=== PATIENT | female | born 1970 | race Caucasian/White ===

== ENCOUNTER 2017-02-26 13:46 | Inpatient (IN) | payer BC ==
[2017-02-26] MEDS ORDERED: NORMAL SALINE 1000 ML 2,000 ML IV PRN (13:58)
--- NOTE | 2017-02-26 14:00 | ER Document Report ---
ED Medical Screen (RME) - General Chief Complaint: Shortness Of Breath Stated Complaint: SHORTNESS OF BREATH Time Seen by Provider: 02/26/17 13:53 Mode of Arrival: Ambulatory Information source: Patient TRAVEL OUTSIDE OF THE [place] IN LAST 30 DAYS: No - HPI Patient complains to provider of: Of breath, low blood pressure Onset: Last week Onset/Duration: Persistent, Worse Notes: 02/26/17 13:59 Patient is a 46-year-old female with a history of hypertension, who presents to the emergency room from [facility] for complaints of shortness of breath this been worsening over the past week, she was seen at the urgent care this morning and had outpatient labs, chest x-ray and EKG done, which are consistent with acute renal failure which patient reports no history of previously, she was noted to have a blood pressure 78/52 in the office as well, was recommended to come by ambulance but patient refused and came by private vehicle, she is hypotensive in our emergency department triage area as well, however lungs are clear to auscultation, she is not in respiratory distress, she does appear to have a dry mouth as she is speaking to me and frequently trying to lick her lips - Related Data Allergies/Adverse Reactions: acetaminophen [From Percocet] Allergy (Verified 02/26/17 13:48) oxycodone HCl [From Percocet] Allergy (Verified 02/26/17 13:48) Penicillins Allergy (Verified 02/26/17 13:48) Past Medical History - Past Medical History Cardiac Medical History: Reports: Hx Hypercholesterolemia Neurological Medical History: Reports: Hx Migraine Renal/ Medical History: Denies: Hx Peritoneal Dialysis Musculoskeltal Medical History: Reports Hx Arthritis Psychiatric Medical History: Reports: Hx Depression Past Surgical History: Reports: Hx Tonsillectomy - Immunizations Hx Diphtheria, Pertussis, Tetanus Vaccination: Yes Physical Exam - Vital signs Vitals: Temp Pulse Resp BP Pulse Ox 97.7 F 93 18 85/64 L 99 02/26/17 13:49 02/26/17 13:49 02/26/17 13:49 02/26/17 13:49 02/26/17 13:49 Course - Vital Signs Vital signs: Temp Pulse Resp BP Pulse Ox 97.7 F 93 18 85/64 L 99 02/26/17 13:49 02/26/17 13:49 02/26/17 13:49 02/26/17 13:49 02/26/17 13:49
--- NOTE | 2017-02-26 14:22 | ER Document Report ---
ED Respiratory Problem - General Chief Complaint: Shortness Of Breath Stated Complaint: SHORTNESS OF BREATH Time Seen by Provider: 02/26/17 13:53 Mode of Arrival: Ambulatory Notes: The patient is a 46-year-old female, past medical history hypertension, fibromyalgia, chronic migraines, presents from urgent care center after she was having increased shortness of breath over the past day and was noted to have symptomatic hypotension with blood pressures in the 70s-80s/50s. She had a near syncopal episode yesterday. Patient was using her albuterol inhaler every few minutes over the past day without much relief of her dry cough. Her creatinine was also noted to be 3.75 and she said that she has no history of kidney disease. Pt said that she was drinking fluids, but she is urinating less often. Patient denies chest pain, leg swelling, nausea, vomiting, diarrhea, hematuria, dysuria, headache or rash. TRAVEL OUTSIDE OF THE [place] IN LAST 30 DAYS: No - Related Data Allergies/Adverse Reactions: acetaminophen [From Percocet] Allergy (Verified 02/26/17 13:48) oxycodone HCl [From Percocet] Allergy (Verified 02/26/17 13:48) Penicillins Allergy (Verified 02/26/17 13:48) Home Medications: Current Home Medications Candesartan Cilexetil [Atacand] 32 mg PO DAILY 02/26/17 [History] Citalopram Hydrobromide [Celexa 40 mg Tablet] 50 mg PO DAILY 02/26/17 [History] Cyclobenzaprine HCl [Flexeril 10 mg Tablet] 10 mg PO DAILYP PRN 02/26/17 [ History] Dextroamphetamine/Amphetamine [Adderall Xr 30 mg Capsule] 30 mg PO BID 02/26/17 [History] Levorphanol Tartrate [Levorphanol Tartrate] 2 mg PO Q12 02/26/17 [History] Naloxegol Oxalate [Movantik 25 mg Tablet] 25 mg PO DAILY 02/26/17 [History] Naproxen 500 mg PO BIDP PRN 02/26/17 [History] Norethindrone [Hawa-Be] 0.35 mg PO DAILY 02/26/17 [History] Omeprazole 20 mg PO BID 02/26/17 [History] Spironolactone [Aldactone] 100 mg PO DAILY 02/26/17 [History] Sumatriptan [Imitrex 20 Mg Nasal [place] Ud] 20 mg NASL ASDIR PRN 02/26/17 [ History] Past Medical History - General Information source: Patient - Social History Smoking Status: Never Smoker Frequency of alcohol use: None Drug Abuse: None Family History: Reviewed & Not Pertinent - Past Medical History Cardiac Medical History: Reports: Hx Hypercholesterolemia, Hx Hypertension Neurological Medical History: Reports: Hx Migraine Renal/ Medical History: Denies: Hx Peritoneal Dialysis Musculoskeltal Medical History: Reports Hx Arthritis Psychiatric Medical History: Reports: Hx Depression Past Surgical History: Reports: Hx Tonsillectomy - Immunizations Hx Diphtheria, Pertussis, Tetanus Vaccination: Yes Review of Systems - Review of Systems Notes: REVIEW OF SYSTEMS: CONSTITUTIONAL: -fevers, -chills EENT: -eye pain, -difficulty swallowing, -nasal congestion CARDIOVASCULAR:-chest pain, -syncope. RESPIRATORY: -cough, -SOB GASTROINTESTINAL: -abdominal pain, - nausea, -vomiting, -diarrhea GENITOURINARY: -dysuria, -hematuria MUSCULOSKELETAL: -back pain, -neck pain SKIN: -rash or skin lesions. HEMATOLOGIC: -easy bruising or bleeding. LYMPHATIC: -swollen, enlarged glands. NEUROLOGICAL: +lightheaded, -altered mental status or loss of consciousness, - headache, -neurologic symptoms PSYCHIATRIC: -anxiety, -depression. ALL OTHER SYSTEMS REVIEWED AND NEGATIVE. Physical Exam - Vital signs Vitals: Temp Pulse Resp BP Pulse Ox 97.7 F 93 18 85/64 L 99 02/26/17 13:49 02/26/17 13:49 02/26/17 13:49 02/26/17 13:49 02/26/17 13:49 - Notes Notes: PHYSICAL EXAMINATION: GENERAL: Well-appearing, well-nourished and in no acute distress. HEAD: Atraumatic, normocephalic. EYES: Pupils equal round and reactive to light, extraocular movements intact, sclera anicteric, conjunctiva are normal. ENT: nares patent, oropharynx clear without exudates. Moist mucous membranes. NECK: Normal range of motion, supple without lymphadenopathy LUNGS: Breath sounds clear to auscultation bilaterally and equal. No wheezes rales or rhonchi. HEART: Regular rate and rhythm without murmurs ABDOMEN: Soft, nontender, normoactive bowel sounds. No guarding, no rebound. No masses appreciated. EXTREMITIES: Normal range of motion, no pitting or edema. No cyanosis. NEUROLOGICAL: Cranial nerves grossly intact. Normal speech, normal gait. Normal sensory and motor exams. PSYCH: Normal mood, normal affect. SKIN: Warm, Dry, normal turgor, no rashes or lesions noted. Course - Re-evaluation Re-evalutation: Patient hypotensive on arrival 69/40, which improved to 90's/60's after fluids. Creatinine is 3.5 and potassium is 5.7, but no EKG changes. Patient has no history of kidney problems. No signs of infection at this time and a normal lactate. V/Q scan obtained due to shortness of breath, elevated d-dimer and hypotension, but the V/Q scan does not show evidence of a PE. Patient requires inpatient admission for further evaluation of her acute kidney injury and hypotension. 02/26/17 17:[address] Robin and he will be down to see the patient. 02/26/17 17:36 Pt will be admitted to ICU. - Vital Signs Vital signs: Temp Pulse Resp BP Pulse Ox 97.7 F 93 19 97/58 L 98 02/26/17 13:49 02/26/17 13:49 02/26/17 16:56 02/26/17 16:56 02/26/17 16:56 - Laboratory Result Diagrams: 02/26/17 14:12 02/26/17 14:12 Laboratory results interpreted by me: 02/26/17 02/26/17 02/26/17 14:12 14:12 14:12 WBC 12.5 H Hgb 11.2 L Hct 33.8 L VBG pH 7.24 L Sodium 134.5 L Potassium 5.7 H BUN 37 H Creatinine 3.61 H Est GFR ( Amer) 16 L Est GFR (Non-Af Amer) 13 L Direct Bilirubin 0.7 H - Diagnostic Test Radiology reviewed: Image reviewed, Reports reviewed Radiology results interpreted by me: V/Q scan: No evidence of PE. CXR: NAD - EKG Interpretation by Me EKG shows normal: Sinus rhythm, [place], Intervals, QRS Complexes, ST-T Waves Rate: Normal Discharge - Discharge Clinical Impression: RAJEEV (acute kidney injury) Hypotension Qualifiers: Hypotension type: unspecified hypotension type Qualified Code(s): I95.9 - Hypotension, unspecified Condition: Serious Disposition: ADMITTED INPATIENT Admitting Provider: Hospitalist - [facility] Unit Admitted: ICU
[2017-02-26 14:44] LABS: ABSOLUTE BASOPHILS # (AUTO) 0.1 10^3/uL (0.0-0.2); ABSOLUTE EOSINOPHILS # (AUTO) 0.4 10^3/uL (0.0-0.6); ABSOLUTE LYMPHOCYTES (AUTO) 4.2 10^3/uL (0.5-4.7); ABSOLUTE NEUT (AUTO) 6.7 10^3/uL (1.7-8.2); BASOPHILS % (AUTO) 0.7 % (0-2); EOSINOPHILS % (AUTO) 3.3 % (0-6); HEMATOCRIT 33.8 % (36.0-47.0); HEMOGLOBIN 11.2 g/dL (12.0-15.5); HGB HCT DIFFERENCE -0.2; LYMPHOCYTES % (AUTO) 33.8 % (13-45); MEAN CORPUSCULAR HEMOGLOBIN 28.5 pg (27.0-33.4); MEAN CORPUSCULAR HGB CONC 33.2 g/dL (32.0-36.0); MEAN CORPUSCULAR VOLUME 86 fl (80-97); MONOCYTES % (AUTO) 8.2 % (3-13); RED BLOOD COUNT 3.94 10^6/uL (3.72-5.28); RED CELL DISTRIBUTION WIDTH 13.8 % (11.5-14.0); WHITE BLOOD COUNT 12.5 10^3/uL (4.0-10.5)
[2017-02-26 14:48] LABS: VENOUS BLOOD BASE EXCESS -2.2 mmol/L; VENOUS BLOOD HCO3 26.3 mmol/L (20-32); VENOUS BLOOD PCO2 62.6 mmHg (35-63); VENOUS BLOOD PH 7.24 (7.30-7.42)
[2017-02-26 15:12] LABS: ALANINE AMINOTRANSFERASE 21 U/L (9-52); ALKALINE PHOSPHATASE 65 U/L (38-126); ANION GAP 13 (5-19); ASPARTATE AMINO TRANSFERASE 21 U/L (14-36); BILIRUBIN,DIRECT 0.7 mg/dL (0.0-0.4); BILIRUBIN,TOTAL 0.9 mg/dL (0.2-1.3); BLOOD UREA NITROGEN 37 mg/dL (7-20); CALCIUM 8.9 mg/dL (8.4-10.2); CARBON DIOXIDE 24 mmol/L (22-30); CHLORIDE 98 mmol/L (98-107); CREATINE KINASE 86 U/L (30-135); CREATININE RESULT 3.61 mg/dL (0.52-1.25); GLUCOSE 87 mg/dL (75-110); POTASSIUM 5.7 mmol/L (3.6-5.0); SODIUM 134.5 mmol/L (137-145); TOTAL PROTEIN 6.9 g/dL (6.3-8.2)
[2017-02-26 15:21] LABS: CREATINE KINASE MB 1.45 ng/mL (<4.55)
[2017-02-26 15:25] LABS: TROPONIN I < 0.012 ng/mL
--- NOTE | 2017-02-26 15:47 | RADIOLOGY REPORT (SQ) ---
EXAM DESCRIPTION: NM LUNG VENT/PERF SCAN COMPLETED DATE/TIME: 02/26/2017 3:13 pm REASON FOR STUDY: SOB, d-dimer 152, creatinine 3.75, hypotension COMPARISON: None. RADIONUCLIDE AND DOSE: 5.44 millicuries TC-99m MAA Intravenous 30.3 millicuries TC-99m DTPA Inhaled aerosol TECHNIQUE: Anterior and posterior views of the lungs acquired post ventilation of DTPA aerosol. Eig ht views of the lungs acquired following injection of MAA. LIMITATIONS: None. FINDINGS: VENTILATION: Symmetric and homogeneous distribution of DTPA aerosol during ventilatory pha se. No significant areas of photopenia. PERFUSION: Perfusion images with normal homogenous activity and no wedge-shaped or segmental defects. No ventilation-perfusion mismatches. OTHER: No other significant finding. IMPRESSION: NORMAL VENTILATION-PERFUSION LUNG SCAN. NEGATIVE FOR PULMONARY EMBOLI. TECHNICAL DOCUMENTATION: JOB ID: [id number] [employer]- All Rights Reserved
--- NOTE | 2017-02-26 15:51 | RADIOLOGY REPORT (SQ) ---
EXAM DESCRIPTION: CHEST SINGLE VIEW COMPLETED DATE/TIME: 02/26/2017 3:17 pm REASON FOR STUDY: SOB COMPARISON: 03/21/2012 EXAM PARAMETERS: NUMBER OF VIEWS: One view. TECHNIQUE: Single frontal radiographic view of the chest acquired. RADIATION DOSE: NA LIMITATIONS: None. FINDINGS: LUNGS AND PLEURA: No opacities, masses or pneumothorax. No pleural effusion. MEDIASTINUM AND HILAR STRUCTURES: No masses. Contour normal. HEART AND VASCULAR STRUCTURES: Heart normal in size. Normal vasculature. BONES: No acute findings. HARDWARE: None in the chest. OTHER: No other significant finding. IMPRESSION: NO ACUTE RADIOGRAPHIC FINDING IN THE CHEST. TECHNICAL DOCUMENTATION: JOB ID: [id number]
[2017-02-26] MEDS ORDERED: NORMAL SALINE 1000 ML 1,000 ML IV ONE (16:24)
[2017-02-26 17:01] LABS: APPEARANCE,URINE SLIGHTLY-CLOUDY; BILIRUBIN,URINE NEGATIVE (NEGATIVE); GLUCOSE, URINE NEGATIVE (NEGATIVE); KETONES,URINE NEGATIVE (NEGATIVE); LEUKOCYTE ESTERASE,URINE NEGATIVE (NEGATIVE); NITRITE,URINE NEGATIVE (NEGATIVE); PROTEIN,URINE NEGATIVE (NEGATIVE); UROBILINOGEN,URINE NEGATIVE mg/dL (<2.0)
[2017-02-26] MEDS ORDERED: ONDANSETRON HCL INJ/PF 4 MG/2 ML SDV IV PRN (17:34)
[2017-02-26] MEDS ORDERED: ONDANSETRON 4 MG TAB.RAPDIS PO PRN (17:34)
[2017-02-26] MEDS ORDERED: ALBUTEROL SULFATE 0.083% NEB 2.5 MG/3 ML AMPUL NEB PRN (17:34)
[2017-02-26] MEDS ORDERED: ACETAMINOPHEN 325 MG TABLET PO PRN (17:34)
--- NOTE | 2017-02-26 17:58 | PDOC H&P ---
History of Present Illness Admission Date/PCP: February 26, 2017 Patient complains of: 2 day history of cough and shortness of breath. History of Present Illness: SINGH CALDERON is a 46 year old female with a history of chronic pain for which she takes narcotics and Naprosyn who presents with a 2 day history of cough and shortness of breath. The patient reports that she 2 days ago with swimming in her pool that she does daily for 2-3 hours and they closed the portal because of excessive chlorine. Since that time she has had a nonproductive cough and has had shortness of breath. She is also felt dizzy when she stands up and has had some left-sided chest pressure. She denies having any fevers or chills. She reports that her cough has been nonproductive. She described the pain as a sharp left-sided pleuritic pain is worse when she takes a deep breath in. She reports that it is not made worse with exertion. She denies having any orthopnea or PND. She had a VQ scan that was low probability for pulmonary embolism. She is noted to have acute renal failure. She has not been known to have elevated creatinine before. She is on Aldactone and candesartan for her blood pressure. The patient reports that she has been taking Naprosyn 2 tablets daily and is not taking any extra anti-inflammatories. The patient in the emergency room was noted to have hypotension with blood pressures in the 60s initially. She has received fluids and her blood pressures have improved. The patient denies any lower extremity edema. She reports that she has been drinking as usual but has had some dark colored urine for the last day. She was under the impression of this was secondary to her multivitamin that she takes. She did have a CAT scan done about 6 months ago and received IV contrast at that time. She denies any fevers or chills or any type of recent upper respiratory illness. She denies any recent antibiotic usage. Denies any new medication started recently. Past Medical History Cardiac Medical History: Reports: Hyperlipidema, Hypertension Pulmonary Medical History: Reports: None EENT Medical History: Reports: None Neurological Medical History: Reports: Migraine Endocrine Medical History: Reports: None Renal/ Medical History: Reports: None Malignancy Medical History: Reports: None GI Medical History: Reports: Gastroesophageal Reflux Disease Musculoskeltal Medical History: Reports: Arthritis, Fibromyalgia, Other - Neck pain requiring cervical spine surgery Psychiatric Medical History: Reports: Depression Hematology: Reports: Anemia Infectious Medical History: Reports: None Past Surgical History Past Surgical History: Reports: Orthopedic Surgery - Cervical spine surgery with discectomy, Tonsillectomy Social History Information Source: Patient Lives with: Spouse/Significant other Smoking Status: Never Smoker Frequency of Alcohol Use: None Hx Recreational Drug Use: No Drugs: None Hx Prescription Drug Abuse: No - Advance Directive Resuscitation Status: Full Code Surrogate healthcare decision maker:: is at the bedside Family History Family History: Mother at age 66 with brain cancer. Father 73 alive and has coronary artery disease. Parental Family History Reviewed: Yes Children Family History Reviewed: No Sibling(s) Family History Reviewed.: No Medication/Allergy Home Medications: Candesartan Cilexetil [Atacand] 32 mg PO DAILY 02/26/17 Citalopram Hydrobromide [Celexa 40 mg Tablet] 50 mg PO DAILY 02/26/17 Cyclobenzaprine HCl [Flexeril 10 mg Tablet] 10 mg PO DAILYP PRN 02/26/17 Dextroamphetamine/Amphetamine [Adderall Xr 30 mg Capsule] 30 mg PO BID 02/26/17 Levorphanol Tartrate [Levorphanol Tartrate] 2 mg PO Q12 02/26/17 Naloxegol Oxalate [Movantik 25 mg Tablet] 25 mg PO DAILY 02/26/17 Naproxen 500 mg PO BIDP PRN 02/26/17 Norethindrone [Hawa-Be] 0.35 mg PO DAILY 02/26/17 Omeprazole 20 mg PO BID 02/26/17 Spironolactone [Aldactone] 100 mg PO DAILY 02/26/17 Sumatriptan [Imitrex 20 Mg Nasal [place] Ud] 20 mg NASL ASDIR PRN 02/26/17 Allergies/Adverse Reactions: acetaminophen [From Percocet] Allergy (Verified 02/26/17 13:48) oxycodone HCl [From Percocet] Allergy (Verified 02/26/17 13:48) Penicillins Allergy (Verified 02/26/17 13:48) Review of Systems Constitutional: PRESENT: weight loss - Reports an 80 pound weight loss over the last year. Reports that she has been exercising and dieting on a daily basis.. ABSENT: chills, fever(s), headache(s), weight gain Eyes: ABSENT: visual disturbances Ears: ABSENT: hearing changes Cardiovascular: PRESENT: dyspnea on exertion. ABSENT: chest pain, edema, orthropnea, palpitations Respiratory: PRESENT: cough, dyspnea. ABSENT: hemoptysis, sputum Gastrointestinal: ABSENT: abdominal pain, constipation, diarrhea, hematemesis, hematochezia, nausea, vomiting Genitourinary: ABSENT: dysuria, hematuria Musculoskeletal: PRESENT: back pain Integumentary: ABSENT: rash, wounds Neurological: ABSENT: abnormal gait, abnormal speech, confusion, dizziness, focal weakness, syncope Psychiatric: ABSENT: anxiety, depression Endocrine: ABSENT: cold intolerance, heat intolerance, polydipsia, polyuria Hematologic/Lymphatic: ABSENT: easy bleeding, easy bruising Physical Exam Vital Signs: Temp Pulse Resp BP Pulse Ox 97.7 F 93 19 97/58 L 98 02/26/17 13:49 02/26/17 13:49 02/26/17 16:56 02/26/17 16:56 02/26/17 16:56 Intake & Output 02/25/17 02/26/17 02/27/17 06:59 06:59 06:59 Weight 92.6 kg General appearance: PRESENT: no acute distress, obese Head exam: PRESENT: atraumatic, normocephalic Eye exam: PRESENT: conjunctiva pink, EOMI, PERRLA. ABSENT: scleral icterus Ear exam: PRESENT: normal external ear exam Mouth exam: PRESENT: moist, tongue midline Neck exam: ABSENT: carotid bruit, JVD, lymphadenopathy, thyromegaly Respiratory exam: PRESENT: clear to auscultation ba. ABSENT: rales, rhonchi, wheezes Cardiovascular exam: PRESENT: RRR. ABSENT: diastolic murmur, rubs, systolic murmur Pulses: PRESENT: normal dorsalis pedis pul Vascular exam: PRESENT: normal capillary refill GI/Abdominal exam: PRESENT: normal bowel sounds, soft. ABSENT: distended, guarding, mass, organolmegaly, rebound, tenderness Rectal exam: PRESENT: deferred Extremities exam: ABSENT: calf tenderness, clubbing, pedal edema Neurological exam: PRESENT: alert, awake, oriented to person, oriented to place , oriented to time, oriented to situation, CN II-XII grossly intact. ABSENT: motor sensory deficit Psychiatric exam: PRESENT: appropriate affect Skin exam: PRESENT: dry, intact, warm. ABSENT: cyanosis, rash Results Laboratory Results: 02/26/17 14:12 02/26/17 14:12 02/26/17 02/26/17 02/26/17 14:12 14:12 14:12 WBC 12.5 H RBC 3.94 Hgb 11.2 L Hct 33.8 L MCV 86 MCH 28.5 MCHC 33.2 RDW 13.8 Plt Count 305 Seg Neutrophils % 54.0 Lymphocytes % 33.8 Monocytes % 8.2 Eosinophils % 3.3 Basophils % 0.7 Absolute Neutrophils 6.7 Absolute Lymphocytes 4.2 Absolute Monocytes 1.0 Absolute Eosinophils 0.4 Absolute Basophils 0.1 VBG pH VBG pCO2 VBG HCO3 VBG Base Excess Sodium 134.5 L Potassium 5.7 H Chloride 98 Carbon Dioxide 24 Anion Gap 13 BUN 37 H Creatinine 3.61 H Est GFR ( Amer) 16 L Est GFR (Non-Af Amer) 13 L Glucose 87 Lactic Acid 1.1 Calcium 8.9 Total Bilirubin 0.9 AST 21 ALT 21 Alkaline Phosphatase 65 Total Protein 6.9 Albumin 4.0 Urine Color Urine Appearance Urine pH Ur Specific [place] Urine Protein Urine Glucose (UA) Urine Ketones Urine Blood Urine Nitrite Ur Leukocyte Esterase Urine WBC (Auto) Urine RBC (Auto) 02/26/17 02/26/17 14:12 16:42 WBC RBC Hgb Hct MCV MCH MCHC RDW Plt Count Seg Neutrophils % Lymphocytes % Monocytes % Eosinophils % Basophils % Absolute Neutrophils Absolute Lymphocytes Absolute Monocytes Absolute Eosinophils Absolute Basophils VBG pH 7.24 L VBG pCO2 62.6 VBG HCO3 26.3 VBG Base Excess -2.2 Sodium Potassium Chloride Carbon Dioxide Anion Gap BUN Creatinine Est GFR ( Amer) Est GFR (Non-Af Amer) Glucose Lactic Acid Calcium Total Bilirubin AST ALT Alkaline Phosphatase Total Protein Albumin Urine Color YELLOW Urine Appearance SLIGHTLY-CLOUDY Urine pH 5.0 Ur Specific [place] 1.010 Urine Protein NEGATIVE Urine Glucose (UA) NEGATIVE Urine Ketones NEGATIVE Urine Blood NEGATIVE Urine Nitrite NEGATIVE Ur Leukocyte Esterase NEGATIVE Urine WBC (Auto) 4 Urine RBC (Auto) 1 02/26/17 02/26/17 14:12 14:12 Creatine Kinase 86 CK-MB (CK-2) 1.45 Troponin I < 0.012 NT-Pro-B Natriuret Pep 26 Impressions: Lung Scan-VQ NM 02/26/17 14:05 IMPRESSION: NORMAL VENTILATION-PERFUSION LUNG SCAN. NEGATIVE FOR PULMONARY EMBOLI. Chest X-Ray 02/26/17 14:06 IMPRESSION: NO ACUTE RADIOGRAPHIC FINDING IN THE CHEST. Assessment & Plan - Diagnosis (1) RAJEEV (acute kidney injury) Is this a current diagnosis for this admission?: YesPlan: The etiology for her acute kidney injury is unclear. Most likely cause is medications. She has both on Aldactone and candesartan. We will stop both of those and give IV fluids overnight. We will check a renal ultrasound to make certain she does not have any evidence for obstruction. 1 of her pain medications (levorphanol ) has listed renal failure as a potential side effect. We will hold that medication yet to see how she does hold the other medications. She does take Naprosyn but has not taken excessive doses but we will hold that. Will consult nephrology in the morning for their opinion. The patient has been exposed to a high choline levels in the swimming pool that she swims in daily. She has not had any new medications added recently and has had no recent infections. (2) Hypotension Qualifiers: Hypotension type: unspecified hypotension type Qualified Code(s): I95.9 - Hypotension, unspecified Is this a current diagnosis for this admission?: YesPlan: Chest pain this may be all prerenal related to her acute renal failure. We will give IV fluids and monitor closely. There is no evidence for infection or sepsis with a normal white count and no fever. We will however check blood cultures and urine cultures. We will hold off on starting any antibiotics at this time. The possibility of this being acute cardiac event is considered. She however has had some atypical chest pain and we will check serial cardiac enzymes. She does have a family history of having heart disease but no personal history herself. We will also check a random cortisol level as well as thyroid functions. (3) Chest pain Is this a current diagnosis for this admission?: YesPlan: By description this sounds like noncardiac chest pain. She had a VQ scan that was low probability. Unlikely this represents a pulmonary embolism. We will check serial cardiac enzymes just to make certain that she has not had an acute cardiac event. (4) Chronic pain Is this a current diagnosis for this admission?: YesPlan: We will continue with her outpatient narcotics. (5) Hypertension Is this a current diagnosis for this admission?: YesPlan: We will hold her antihypertensives given her low blood pressures. (6) Fibromyalgia Is this a current diagnosis for this admission?: YesPlan: Patient is to continue with her narcotics. (7) Depression Is this a current diagnosis for this admission?: YesPlan: Continue with Celexa. - Time Time Spent: 50 to 70 Minutes - Inpatient Certification Medical Necessity: Need Close Monitoring Due to Risk of Patient Decompensation, Need For IV Fluids - Plan Summary Plan Summary: We will admit to the intensive care unit for close monitoring.
[2017-02-26] MEDS: NORMAL SALINE 1000 ML 1,000 ML IV PRN (18:45)
[2017-02-26 18:55] LABS: URINE BARBITURATES SCREEN NEGATIVE; URINE METHADONE SCREEN NEGATIVE; URINE PHENCYCLIDINE SCREEN NEGATIVE
[2017-02-26 19:13] LABS: URINE OPIATES LOW UNCONFIRMED POSITIVE
--- NOTE | 2017-02-26 19:17 | EKG REPORT ---
SEVERITY:- NORMAL ECG - SINUS RHYTHM : Confirmed by: Yogesh Palma MD 26-Feb-2017 19:16:29
[2017-02-26] MEDS ORDERED: DOPAMINE HCL/DEXTROSE 5%-WATER 800 MG/250 ML RTUINJ IV ONE (19:41)
[2017-02-26] MEDS ORDERED: NORMAL SALINE 1000 ML 1,000 ML IV PRN ×2 (19:43→23:25)
[2017-02-26] MEDS ORDERED: NORMAL SALINE 1000 ML 2,000 ML IV ONE (19:43)
[2017-02-26] MEDS ORDERED: DOPAMINE HCL/DEXTROSE 5%-WATER 250 ML IV PRN (19:43)
[2017-02-26] MEDS ORDERED: HALOPERIDOL LACTATE INJ 5 MG/1 ML VIAL IV ONE (19:45)
[2017-02-26] MEDS ORDERED: HYDROCORTISONE SOD SUCCINATE INJ/PF 100 MG/2 ML SDV IV ONE (19:46)
[2017-02-26] MEDS ORDERED: NALOXONE HCL INJ 2 MG/2 ML DISP.SYRIN IV ONE (19:48)
[2017-02-26] MEDS ORDERED: HALOPERIDOL LACTATE INJ 5 MG/1 ML VIAL ONE (19:48)
--- NOTE | 2017-02-26 20:00 | RADIOLOGY REPORT (SQ) ---
EXAM DESCRIPTION: U/S RETROPERITON LTD COMPLETED DATE/TIME: 02/26/2017 6:32 pm REASON FOR STUDY: acute renal failure, r/o obstruction COMPARISON: None. TECHNIQUE: Dynamic and static grayscale images acquired of the kidneys and bladder and recorded on P ACS. Additional selected color Doppler and spectral images recorded. LIMITATIONS: None. FINDINGS: RIGHT KIDNEY: Normal size. Normal echogenicity. No solid or suspicious masses. No h ydronephrosis. No calcifications. LEFT KIDNEY: Normal size. Normal echogenicity. No solid or suspicious masses. No hydronephrosi s. No calcifications. BLADDER: No masses. OTHER FINDINGS: No other significant finding. IMPRESSION: NORMAL RENAL AND BLADDER ULTRASOUND. TECHNICAL DOCUMENTATION: JOB ID: [id number] [employer]- All Rights Reserved
[2017-02-26 20:28] LABS: ARTERIAL BLOOD BASE EXCESS -7.1 mmol/L
[2017-02-26 20:49] LABS: ALANINE AMINOTRANSFERASE 17 U/L (9-52); ALBUMIN 3.2 g/dL (3.5-5.0); ALKALINE PHOSPHATASE 59 U/L (38-126); ANION GAP 11 (5-19); ASPARTATE AMINO TRANSFERASE 19 U/L (14-36); BILIRUBIN,DIRECT 0.5 mg/dL (0.0-0.4); BILIRUBIN,TOTAL 0.8 mg/dL (0.2-1.3); BLOOD UREA NITROGEN 29 mg/dL (7-20); CALCIUM 7.7 mg/dL (8.4-10.2); CARBON DIOXIDE 18 mmol/L (22-30); CHLORIDE 106 mmol/L (98-107); GLUCOSE 96 mg/dL (75-110); POTASSIUM 4.8 mmol/L (3.6-5.0); SODIUM 135.4 mmol/L (137-145)
[2017-02-26 21:00] LABS: CREATINE KINASE MB 1.43 ng/mL (<4.55)
[2017-02-26] MEDS ORDERED: FENTANYL CITRATE INJ/PF 100 MCG/2 ML AMPUL IV PRN (21:02)
[2017-02-26] MEDS ORDERED: CALCIUM GLUCONATE 2,222 MG in DEXTROSE 5%-WATER 100 ML IV ONE (21:02)
[2017-02-26 21:04] LABS: TROPONIN I < 0.012 ng/mL
[2017-02-26] MEDS: LANSOPRAZOLE 15 MG TAB.RAP.DR PO SCH (21:34)
[2017-02-26] MEDS: HEPARIN SOD (PORCINE) 5,000 UNIT/ML 1 ML SYRINGE SUBCUT SCH (21:35)
[2017-02-26] MEDS ORDERED: FAMOTIDINE 20 MG TABLET PO SCH (22:00)
[2017-02-26] MEDS ORDERED: NALOXONE HCL INJ/PF 0.4 MG/1 ML SDV ONE (23:27)
[2017-02-26] MEDS ORDERED: NOREPINEPHRINE BITARTRATE INJ/PF 4 MG/4 ML SDV IV ONE (23:42)
[2017-02-26] MEDS ORDERED: DEXTROSE 5%-WATER 250 ML with NOREPINEPHRINE BITARTRATE 4 MG IV PRN ×2 (23:57)
[2017-02-27] MEDS: NORMAL SALINE 1000 ML 1,000 ML IV PRN ×4 (01:29→11:42)
[2017-02-27 02:22] LABS: ABSOLUTE LYMPHOCYTES (AUTO) 1.3 10^3/uL (0.5-4.7); ABSOLUTE MONOCYTES (AUTO) 0.3 10^3/uL (0.1-1.4); ABSOLUTE NEUT (AUTO) 9.7 10^3/uL (1.7-8.2); BASOPHILS % (AUTO) 0.3 % (0-2); EOSINOPHILS % (AUTO) 0.2 % (0-6); HEMATOCRIT 30.6 % (36.0-47.0); HEMOGLOBIN 10.3 g/dL (12.0-15.5); HGB HCT DIFFERENCE 0.3; LYMPHOCYTES % (AUTO) 11.5 % (13-45); MEAN CORPUSCULAR HGB CONC 33.6 g/dL (32.0-36.0); MEAN CORPUSCULAR VOLUME 86 fl (80-97); MONOCYTES % (AUTO) 2.5 % (3-13); RED BLOOD COUNT 3.55 10^6/uL (3.72-5.28); RED CELL DISTRIBUTION WIDTH 13.8 % (11.5-14.0); SEGMENTED NEUTROPHILS % (AUTO) 85.5 % (42-78); WHITE BLOOD COUNT 11.4 10^3/uL (4.0-10.5)
[2017-02-27 02:37] LABS: ALANINE AMINOTRANSFERASE 24 U/L (9-52); ALBUMIN 3.1 g/dL (3.5-5.0); ALKALINE PHOSPHATASE 56 U/L (38-126); ANION GAP 9 (5-19); ASPARTATE AMINO TRANSFERASE 19 U/L (14-36); BILIRUBIN,DIRECT 0.4 mg/dL (0.0-0.4); BILIRUBIN,TOTAL 0.7 mg/dL (0.2-1.3); BLOOD UREA NITROGEN 24 mg/dL (7-20); CARBON DIOXIDE 15 mmol/L (22-30); CHLORIDE 116 mmol/L (98-107); CREATINE KINASE 114 U/L (30-135); CREATININE RESULT 1.93 mg/dL (0.52-1.25); GLUCOSE 114 mg/dL (75-110); SODIUM 139.9 mmol/L (137-145); TOTAL PROTEIN 5.9 g/dL (6.3-8.2)
[2017-02-27 02:42] LABS: POTASSIUM 6.5 mmol/L (3.6-5.0)
[2017-02-27 02:54] LABS: TROPONIN I < 0.012 ng/mL
[2017-02-27] MEDS ORDERED: LACTULOSE SYRUP 20 GM/30 ML UDCUP PO ONE (03:08)
[2017-02-27] MEDS ORDERED: SODIUM POLYSTYRENE SULFONATE 15 GM/60 ML PO ONE (03:08)
[2017-02-27 03:09] LABS: THYROID STIMULATING HORMONE 2.8 uIU/mL (0.47-4.68)
[2017-02-27 03:33] LABS: ANION GAP 7 (5-19); BLOOD UREA NITROGEN 23 mg/dL (7-20); CALCIUM 7.9 mg/dL (8.4-10.2); CARBON DIOXIDE 16 mmol/L (22-30); CHLORIDE 116 mmol/L (98-107); CREATININE RESULT 1.85 mg/dL (0.52-1.25); GLUCOSE 116 mg/dL (75-110); SODIUM 139.1 mmol/L (137-145)
[2017-02-27 03:36] LABS: POTASSIUM 6.8 mmol/L (3.6-5.0)
[2017-02-27] MEDS ORDERED: NORMAL SALINE 1000 ML 1,000 ML IV PRN (04:04)
[2017-02-27] MEDS ORDERED: CALCIUM GLUCONATE 1,000 MG in DEXTROSE 5%-WATER 50 ML IV ONE (04:22)
[2017-02-27] MEDS ORDERED: IPRATROPIUM/ALBUTEROL 0.5-2.5 MG/3 ML AMPUL NEB ONE (04:22)
[2017-02-27] MEDS ORDERED: CALCIUM GLUCONATE 1000 MG/10 ML INJ IV ONE (05:03)
[2017-02-27] MEDS: HEPARIN SOD (PORCINE) 5,000 UNIT/ML 1 ML SYRINGE SUBCUT SCH ×3 (05:10→21:18)
[2017-02-27] MEDS ORDERED: FUROSEMIDE INJ/PF 20 MG/2 ML SDV IV ONE (06:30)
[2017-02-27 06:48] LABS: ANION GAP 8 (5-19); BLOOD UREA NITROGEN 20 mg/dL (7-20); CALCIUM 7.9 mg/dL (8.4-10.2); CARBON DIOXIDE 17 mmol/L (22-30); CHLORIDE 116 mmol/L (98-107); CREATININE RESULT 1.58 mg/dL (0.52-1.25); GLUCOSE 118 mg/dL (75-110); SODIUM 140.9 mmol/L (137-145)
[2017-02-27 06:54] LABS: POTASSIUM 5.7 mmol/L (3.6-5.0)
--- NOTE | 2017-02-27 06:54 | Progress Note ---
Provider Note Provider Note: MD notified by the patient's nurse of severe hypotension of 73/50, renal failure with agitation and punching and kicking nursing. Security was called for restraints, notified. Evaluation of medical record is concerning for opiate dependence with intoxication. She receives 2 L of normal saline bolus and initiation of IV dopamine and Haldol. states previous hospitalization has precipitated similar behavior. He brings to the hospital the patient's levo Dromoran as requested by the patient. Evaluation of adverse reaction of this opioid include cardiogenic shock, severe hypotension, renal failure, adrenal insufficiency mood disturbance amongst others. Her pressure initially responds to the above management but again declined shortly after her leaves. In addition she is with 1.5 mm pinpoint pupils, blood pressure of 70/50 pulse of 65 and intoxicated affect. She requires Narcan in addition to levo fed, Solu-Cortef and an additional 2 L of normal saline.
--- NOTE | 2017-02-27 06:55 | Progress Note ---
Provider Note Provider Note: MD again notified by patient's nurse of abnormal lab values including a potassium of 6.5, Kayexalate and lactulose initiated and a repeat chemistry confirms potassium of 6.8. She receives calcium gluconate and EKG which is negative for peak T waves.
--- NOTE | 2017-02-27 08:14 | EKG REPORT ---
SEVERITY:- OTHERWISE NORMAL ECG - SINUS TACHYCARDIA LOW VOLTAGE IN FRONTAL LEADS : Confirmed by: Yogesh Palma MD 27-Feb-2017 08:13:36
[2017-02-27 09:25] LABS: CREATINE KINASE MB 1.89 ng/mL (<4.55)
[2017-02-27 09:31] LABS: TROPONIN I < 0.012 ng/mL
[2017-02-27] MEDS: CITALOPRAM HYDROBROMIDE 20 MG TABLET PO SCH (09:51)
[2017-02-27] MEDS: LANSOPRAZOLE 15 MG TAB.RAP.DR PO SCH ×2 (09:51→21:19)
[2017-02-27] MEDS ORDERED: NORETHINDRONE 0.35 MG PO SCH (10:00)
[2017-02-27] MEDS ORDERED: (PENDING PHARMACY ID) (Naloxegol Oxalate 25 MG) PO SCH (10:00)
[2017-02-27] MEDS ORDERED: CITALOPRAM HYDROBROMIDE PO SCH (10:00)
--- NOTE | 2017-02-27 12:46 | PDOC PROGRESS REPORT ---
Subjective Progress Note for:: 02/27/17 Subjective:: Patient had an uneventful night with episodes of agitation requiring sedation and restraints. Alert and oriented today. She has no longer had any hypotension and her vasopressors are being weaned off. Physical Exam Vital Signs: Temp Pulse Resp BP Pulse Ox 99.3 F 93 20 111/69 100 02/27/17 12:00 02/27/17 10:00 02/27/17 12:00 02/27/17 11:57 02/27/17 12:00 Intake & Output 02/26/17 02/27/17 02/28/17 06:59 06:59 06:59 Intake Total 5298 Output Total 2400 1974 Balance 2897 Weight 97.3 kg General appearance: PRESENT: no acute distress Eye exam: PRESENT: conjunctiva pink. ABSENT: scleral icterus Ear exam: PRESENT: normal external ear exam Mouth exam: PRESENT: moist, tongue midline Neck exam: ABSENT: JVD Respiratory exam: PRESENT: clear to auscultation ba. ABSENT: rales, rhonchi, wheezes Cardiovascular exam: PRESENT: RRR. ABSENT: diastolic murmur, rubs, systolic murmur GI/Abdominal exam: PRESENT: normal bowel sounds, soft. ABSENT: distended, guarding, mass, organolmegaly, rebound, tenderness Rectal exam: PRESENT: deferred Extremities exam: ABSENT: calf tenderness, clubbing, pedal edema Neurological exam: PRESENT: alert, awake, oriented to person, oriented to place , oriented to time, oriented to situation, CN II-XII grossly intact. ABSENT: motor sensory deficit Psychiatric exam: PRESENT: appropriate affect Skin exam: PRESENT: dry, intact, warm. ABSENT: cyanosis, rash Results Laboratory Results: 02/27/17 02:12 02/27/17 06:21 02/26/17 02/26/17 02/27/17 20:14 20:16 02:12 WBC RBC Hgb Hct MCV MCH MCHC RDW Plt Count Seg Neutrophils % Lymphocytes % Monocytes % Eosinophils % Basophils % Absolute Neutrophils Absolute Lymphocytes Absolute Monocytes Absolute Eosinophils Absolute Basophils Carbonic Acid 0.99 L HCO3/H2CO3 Ratio 17:1 ABG pH 7.35 ABG pCO2 32.9 L ABG pO2 65.0 L ABG HCO3 17.6 L ABG O2 Saturation 92.0 L ABG Base Excess -7.1 FiO2 ROOM AIR Sodium 135.4 L 139.9 Potassium 4.8 6.5 H* D Chloride 106 116 H Carbon Dioxide 18 L 15 L Anion Gap 11 9 BUN 29 H 24 H Creatinine 2.50 H 1.93 H Est GFR ( Amer) 25 L 34 L Est GFR (Non-Af Amer) 21 L 28 L Glucose 96 114 H Calcium 7.7 L 8.0 L Total Bilirubin 0.8 0.7 AST 19 19 ALT 17 24 Alkaline Phosphatase 59 56 Total Protein 6.0 L 5.9 L Albumin 3.2 L 3.1 L TSH Free T4 02/27/17 02/27/17 02/27/17 02:12 02:12 03:05 WBC 11.4 H RBC 3.55 L Hgb 10.3 L Hct 30.6 L MCV 86 MCH 29.0 MCHC 33.6 RDW 13.8 Plt Count 263 Seg Neutrophils % 85.5 H Lymphocytes % 11.5 L Monocytes % 2.5 L Eosinophils % 0.2 Basophils % 0.3 Absolute Neutrophils 9.7 H Absolute Lymphocytes 1.3 Absolute Monocytes 0.3 Absolute Eosinophils 0.0 Absolute Basophils 0.0 Carbonic Acid HCO3/H2CO3 Ratio ABG pH ABG pCO2 ABG pO2 ABG HCO3 ABG O2 Saturation ABG Base Excess FiO2 Sodium 139.1 Potassium 6.8 H* Chloride 116 H Carbon Dioxide 16 L Anion Gap 7 BUN 23 H Creatinine 1.85 H Est GFR ( Amer) 35 L Est GFR (Non-Af Amer) 29 L Glucose 116 H Calcium 7.9 L Total Bilirubin AST ALT Alkaline Phosphatase Total Protein Albumin TSH 2.80 Free T4 1.07 02/27/17 06:21 WBC RBC Hgb Hct MCV MCH MCHC RDW Plt Count Seg Neutrophils % Lymphocytes % Monocytes % Eosinophils % Basophils % Absolute Neutrophils Absolute Lymphocytes Absolute Monocytes Absolute Eosinophils Absolute Basophils Carbonic Acid HCO3/H2CO3 Ratio ABG pH ABG pCO2 ABG pO2 ABG HCO3 ABG O2 Saturation ABG Base Excess FiO2 Sodium 140.9 Potassium 5.7 H D Chloride 116 H Carbon Dioxide 17 L Anion Gap 8 BUN 20 Creatinine 1.58 H Est GFR ( Amer) 42 L Est GFR (Non-Af Amer) 35 L Glucose 118 H Calcium 7.9 L Total Bilirubin AST ALT Alkaline Phosphatase Total Protein Albumin TSH Free T4 02/26/17 02/26/17 02/27/17 20:16 20:16 02:12 Creatine Kinase 110 CK-MB (CK-2) 1.43 1.80 Troponin I < 0.012 < 0.012 02/27/17 02/27/17 02/27/17 02:12 08:47 08:47 Creatine Kinase 114 121 CK-MB (CK-2) 1.89 Troponin I < 0.012 Impressions: Renal Ultrasound 02/26/17 00:00 IMPRESSION: NORMAL RENAL AND BLADDER ULTRASOUND. Lung Scan-VQ NM 02/26/17 14:05 IMPRESSION: NORMAL VENTILATION-PERFUSION LUNG SCAN. NEGATIVE FOR PULMONARY EMBOLI. Chest X-Ray 02/26/17 14:06 IMPRESSION: NO ACUTE RADIOGRAPHIC FINDING IN THE CHEST. Assessment & Plan - Diagnosis (1) RAJEEV (acute kidney injury) Is this a current diagnosis for this admission?: YesPlan: The acute renal failure has improved but the etiology for her acute kidney injury is unclear. Most likely cause is medications. She has been both on Aldactone and candesartan. We will stop both of those and continue IV fluids. Renal ultrasound does not show any evidence for obstruction. 1 of her pain medications (levorphanol ) has listed renal failure as a potential side effect. We will hold that medication yet to see how she does hold the other medications. She does take Naprosyn but has not taken excessive doses but we will hold that. nephrology has been consulted. The patient has been exposed to a high choline levels in the swimming pool that she swims in daily. She has not had any new medications added recently and has had no recent infections. (2) Hypotension Qualifiers: Hypotension type: unspecified hypotension type Qualified Code(s): I95.9 - Hypotension, unspecified Is this a current diagnosis for this admission?: YesPlan: this may be all prerenal related to her acute renal failure. We will continue IV fluids and monitor closely. There is no evidence for infection or sepsis with a normal white count and no fever. We have obtained blood cultures and urine cultures. We will hold off on starting any antibiotics at this time. The possibility of this being acute cardiac event is considered. She however has had some atypical chest pain and we will check serial cardiac enzymes. She does have a family history of having heart disease but no personal history herself. Given cortisone last night because of a relatively low cortisol level. (3) Chest pain Is this a current diagnosis for this admission?: YesPlan: By description this sounds like noncardiac chest pain. She had a VQ scan that was low probability. Unlikely this represents a pulmonary embolism. Enzymes have been negative (4) Chronic pain Is this a current diagnosis for this admission?: YesPlan: We will continue with her outpatient narcotics. (5) Hypertension Is this a current diagnosis for this admission?: YesPlan: We will hold her antihypertensives given her low blood pressures. (6) Fibromyalgia Is this a current diagnosis for this admission?: YesPlan: Patient is to continue with her narcotics. (7) Depression Is this a current diagnosis for this admission?: YesPlan: Continue with Celexa. - Time Time Spent with patient: 25-34 minutes - Inpatient Certification Medical Necessity: Need Close Monitoring Due to Risk of Patient Decompensation
--- NOTE | 2017-02-27 16:52 | PDOC CONSULTATION ---
Consultation Consult Date: 02/27/17 Consult reason:: RAJEEV, Hypotension, Hyperkalemia. History of Present Illness Admission Date/PCP: 02/26/17 17:34 History of Present Illness: SINGH CALDERON is a 46 year old female with a history of Hypertension, Sleep apnea but not using the CPAP, chronic pain for which she takes narcotics and Naprosyn who presents with a 2 day history of paroxysmal cough and shortness of breath. It has been especially noticeable after swimming at the [employer] pool that she does daily for 2-3 hours and and believes it to be secondary to excessive chlorine. This has happened before as well. She has had a nonproductive cough and has had shortness of breath. She tried using her inhalers and has had maybe some partial relief. However over the last couple of days she has become quite orthostatic.She initially thought that this was because of an inner ear infection and thought that she was having vertigo. She denies having any headaches,fevers or chills. She also mentioned about a sharp left-sided pleuritic pain . She reports that it is not made worse with exertion. She denies having any orthopnea or PND. She is on Aldactone and candesartan for her blood pressure And apparently this combination is also been put on for her frequent migraine and apparently has helped that as well.. The patient reports that she has been taking Naprosyn 2 tablets daily . The patient was seen in the emergency room and was noted to have hypotension with blood pressures in the 60s initially. She has received fluids and her blood pressures have improved. The patient denies any lower extremity edema. She reports that she has been drinking as usual but has had some dark colored urine for the last day. She was under the impression of this was secondary to her multivitamin that she takes. She denies any history of long-standing orthostasis. She denies any history of skin discoloration.She denies any family history of low blood pressure. There is however a strong family history of severe CAD on her father's side. Patient was seen in the ICU today. She is on a pressor agent.She also had a random cortisol level done which came back at 2.2 and was given 1 dose of hydrocortisone according to discussions that done with Dr. Robin.Currently she feels a whole lot better. Her blood pressures in the low 100 systolic. Past Medical History Cardiac Medical History: Reports: Hyperlipidemia, Hypertension-primary Pulmonary Medical History: Reports: None, Sleep Apnea - However she is not using the CPAP EENT Medical History: Reports: None Neurological Medical History: Reports: Migraine Endocrine Medical History: Reports: None Renal/ Medical History: Reports: None Malignancy Medical History: Reports: None GI Medical History: Reports: Gastroesophageal Reflux Disease Musculoskeltal Medical History: Reports: Arthritis, Fibromyalgia, Other - Neck pain requiring cervical spine surgery Psychiatric Medical History: Reports: Depression Infectious Medical History: Reports: None Past Surgical History Past Surgical History: Reports: Orthopedic Surgery - Cervical spine surgery with discectomy, Tonsillectomy Social History Lives with: Spouse/Significant other Smoking Status: Never Smoker Frequency of Alcohol Use: None Hx Recreational Drug Use: No Drugs: None Hx Prescription Drug Abuse: No - Advance Directive Resuscitation Status: Full Code Family History Family History: CAD Parental Family History Reviewed: Yes Children Family History Reviewed: Yes Sibling(s) Family History Reviewed.: Yes Medication/Allergy Home Medications: Candesartan Cilexetil [Atacand] 32 mg PO DAILY 02/26/17 Citalopram Hydrobromide [Celexa 40 mg Tablet] 50 mg PO DAILY 02/26/17 Cyclobenzaprine HCl [Flexeril 10 mg Tablet] 10 mg PO DAILYP PRN 02/26/17 Dextroamphetamine/Amphetamine [Adderall Xr 30 mg Capsule] 30 mg PO BID 02/26/17 Levorphanol Tartrate [Levorphanol Tartrate] 2 mg PO Q12 02/26/17 Naloxegol Oxalate [Movantik 25 mg Tablet] 25 mg PO DAILY 02/26/17 Naproxen 500 mg PO BIDP PRN 02/26/17 Norethindrone [Hawa-Be] 0.35 mg PO DAILY 02/26/17 Omeprazole 20 mg PO BID 02/26/17 Spironolactone [Aldactone] 100 mg PO DAILY 02/26/17 Sumatriptan [Imitrex 20 Mg Nasal [place] Ud] 20 mg NASL ASDIR PRN 02/26/17 Allergies/Adverse Reactions: acetaminophen [From Percocet] Allergy (Verified 02/26/17 13:48) oxycodone HCl [From Percocet] Allergy (Verified 02/26/17 13:48) Penicillins Allergy (Verified 02/26/17 13:48) Review of Systems Constitutional: PRESENT: weight loss - Controlled weight loss with daily exercises and diet. She has lost approximately 80 pounds so far and feels good about that.. ABSENT: anorexia, chills, fatigue, fever(s), headache(s), night sweats, weakness Eyes: ABSENT: visual disturbances Ears: ABSENT: hearing changes Nose, Mouth, and Throat: ABSENT: headache(s), mouth pain, sore throat Cardiovascular: PRESENT: chest pain, dyspnea on exertion. ABSENT: palpitations Gastrointestinal: ABSENT: abdominal pain, bloating, coffee ground emesis, diarrhea, dysphagia, heartburn, hematemesis, melena, nausea Musculoskeletal: ABSENT: deformity Integumentary: ABSENT: diaphoresis, pruritus Neurological: ABSENT: abnormal gait, abnormal movements, abnormal speech, confusion, convulsions, dizziness, memory loss, numbness Psychiatric: ABSENT: anxiety, depression Hematologic/Lymphatic: ABSENT: easy bruising, lymphadenopathy Physical Exam Vital Signs: Temp Pulse Resp BP Pulse Ox 99.7 F 99 22 H 122/72 100 02/27/17 15:27 02/27/17 14:00 02/27/17 15:27 02/27/17 15:27 02/27/17 15:27 Intake & Output 02/26/17 02/27/17 02/28/17 06:59 06:59 06:59 Intake Total 5298 Output Total 2400 2700 Balance 2898 -2700 Weight 97.3 kg General appearance: PRESENT: no acute distress Eye exam: PRESENT: conjunctiva pink, EOMI, PERRLA Ear exam: PRESENT: normal external ear exam Mouth exam: PRESENT: moist, neck supple Neck exam: ABSENT: lymphadenopathy, meningismus, tenderness, thyromegaly, tracheal deviation Respiratory exam: PRESENT: clear to auscultation ba. ABSENT: crackles, rhonchi Cardiovascular exam: PRESENT: +S1, +S2 GI/Abdominal exam: PRESENT: normal bowel sounds, soft. ABSENT: organomegaly, tenderness Extremities exam: ABSENT: pedal edema Neurological exam: PRESENT: alert, awake, oriented to person, oriented to place , oriented to time Skin exam: ABSENT: dry, erythema, mottled Results Laboratory Results: 02/27/17 02:12 02/27/17 06:21 02/26/17 02/26/17 02/27/17 20:14 20:16 02:12 WBC RBC Hgb Hct MCV MCH MCHC RDW Plt Count Seg Neutrophils % Lymphocytes % Monocytes % Eosinophils % Basophils % Absolute Neutrophils Absolute Lymphocytes Absolute Monocytes Absolute Eosinophils Absolute Basophils Carbonic Acid 0.99 L HCO3/H2CO3 Ratio 17:1 ABG pH 7.35 ABG pCO2 32.9 L ABG pO2 65.0 L ABG HCO3 17.6 L ABG O2 Saturation 92.0 L ABG Base Excess -7.1 FiO2 ROOM AIR Sodium 135.4 L 139.9 Potassium 4.8 6.5 H* D Chloride 106 116 H Carbon Dioxide 18 L 15 L Anion Gap 11 9 BUN 29 H 24 H Creatinine 2.50 H 1.93 H Est GFR ( Amer) 25 L 34 L Est GFR (Non-Af Amer) 21 L 28 L Glucose 96 114 H Calcium 7.7 L 8.0 L Total Bilirubin 0.8 0.7 AST 19 19 ALT 17 24 Alkaline Phosphatase 59 56 Total Protein 6.0 L 5.9 L Albumin 3.2 L 3.1 L TSH Free T4 02/27/17 02/27/17 02/27/17 02:12 02:12 03:05 WBC 11.4 H RBC 3.55 L Hgb 10.3 L Hct 30.6 L MCV 86 MCH 29.0 MCHC 33.6 RDW 13.8 Plt Count 263 Seg Neutrophils % 85.5 H Lymphocytes % 11.5 L Monocytes % 2.5 L Eosinophils % 0.2 Basophils % 0.3 Absolute Neutrophils 9.7 H Absolute Lymphocytes 1.3 Absolute Monocytes 0.3 Absolute Eosinophils 0.0 Absolute Basophils 0.0 Carbonic Acid HCO3/H2CO3 Ratio ABG pH ABG pCO2 ABG pO2 ABG HCO3 ABG O2 Saturation ABG Base Excess FiO2 Sodium 139.1 Potassium 6.8 H* Chloride 116 H Carbon Dioxide 16 L Anion Gap 7 BUN 23 H Creatinine 1.85 H Est GFR ( Amer) 35 L Est GFR (Non-Af Amer) 29 L Glucose 116 H Calcium 7.9 L Total Bilirubin AST ALT Alkaline Phosphatase Total Protein Albumin TSH 2.80 Free T4 1.07 02/27/17 06:21 WBC RBC Hgb Hct MCV MCH MCHC RDW Plt Count Seg Neutrophils % Lymphocytes % Monocytes % Eosinophils % Basophils % Absolute Neutrophils Absolute Lymphocytes Absolute Monocytes Absolute Eosinophils Absolute Basophils Carbonic Acid HCO3/H2CO3 Ratio ABG pH ABG pCO2 ABG pO2 ABG HCO3 ABG O2 Saturation ABG Base Excess FiO2 Sodium 140.9 Potassium 5.7 H D Chloride 116 H Carbon Dioxide 17 L Anion Gap 8 BUN 20 Creatinine 1.58 H Est GFR ( Amer) 42 L Est GFR (Non-Af Amer) 35 L Glucose 118 H Calcium 7.9 L Total Bilirubin AST ALT Alkaline Phosphatase Total Protein Albumin TSH Free T4 02/26/17 02/26/17 02/27/17 20:16 20:16 02:12 Creatine Kinase 110 CK-MB (CK-2) 1.43 1.80 Troponin I < 0.012 < 0.012 02/27/17 02/27/17 02/27/17 02:12 08:47 08:47 Creatine Kinase 114 121 CK-MB (CK-2) 1.89 Troponin I < 0.012 Impressions: Renal Ultrasound 02/26/17 00:00 IMPRESSION: NORMAL RENAL AND BLADDER ULTRASOUND. Lung Scan-VQ NM 02/26/17 14:05 IMPRESSION: NORMAL VENTILATION-PERFUSION LUNG SCAN. NEGATIVE FOR PULMONARY EMBOLI. Chest X-Ray 02/26/17 14:06 IMPRESSION: NO ACUTE RADIOGRAPHIC FINDING IN THE CHEST. Assessment & Plan - Diagnosis (1) Hyperkalemia Plan: Is being corrected with appropriate conservative measures. No indications for renal replacements. Fluid being repleted and monitor. (2) Metabolic acidosis Plan: Improving slowly. Monitor. Withhold bicarb for the moment. Assess on a daily basis. (3) RAJEEV (acute kidney injury) Is this a current diagnosis for this admission?: YesPlan: Combination of factors including hypotension and drugs. Correction of these factors and hopefully her renal numbers should be back to normal. (4) Hypertension Is this a current diagnosis for this admission?: Yes (5) Hypotension Qualifiers: Hypotension type: unspecified hypotension type Qualified Code(s): I95.9 - Hypotension, unspecified Is this a current diagnosis for this admission?: YesPlan: Likely [place]. Discussed with Dr. Robin on doing a cosyntropin test.Would recommend starting hydrocortisone post test collection.
[2017-02-27] MEDS ORDERED: COSYNTROPIN INJ 0.25 MG VIAL IV SCH (18:00)
[2017-02-28] MEDS: HEPARIN SOD (PORCINE) 5,000 UNIT/ML 1 ML SYRINGE SUBCUT SCH (05:28)
[2017-02-28 06:08] LABS: ABSOLUTE EOSINOPHILS # (AUTO) 0.1 10^3/uL (0.0-0.6); ABSOLUTE MONOCYTES (AUTO) 0.6 10^3/uL (0.1-1.4); ABSOLUTE NEUT (AUTO) 5.5 10^3/uL (1.7-8.2); BASOPHILS % (AUTO) 0.5 % (0-2); EOSINOPHILS % (AUTO) 1.2 % (0-6); HEMATOCRIT 30.6 % (36.0-47.0); HEMOGLOBIN 10.4 g/dL (12.0-15.5); HGB HCT DIFFERENCE 0.6; LYMPHOCYTES % (AUTO) 24.2 % (13-45); MEAN CORPUSCULAR HEMOGLOBIN 29.1 pg (27.0-33.4); MEAN CORPUSCULAR VOLUME 85 fl (80-97); MONOCYTES % (AUTO) 6.7 % (3-13); RED BLOOD COUNT 3.58 10^6/uL (3.72-5.28); RED CELL DISTRIBUTION WIDTH 14.1 % (11.5-14.0); SEGMENTED NEUTROPHILS % (AUTO) 67.4 % (42-78); WHITE BLOOD COUNT 8.2 10^3/uL (4.0-10.5)
[2017-02-28 06:22] LABS: ANION GAP 9 (5-19); BLOOD UREA NITROGEN 14 mg/dL (7-20); CALCIUM 8.7 mg/dL (8.4-10.2); CARBON DIOXIDE 18 mmol/L (22-30); CHLORIDE 111 mmol/L (98-107); CREATININE RESULT 1.13 mg/dL (0.52-1.25); GLUCOSE 89 mg/dL (75-110); SODIUM 138.3 mmol/L (137-145)
[2017-02-28 06:47] LABS: POTASSIUM 4.7 mmol/L (3.6-5.0)
[2017-02-28] MEDS ORDERED: COSYNTROPIN INJ 0.25 MG VIAL IV SCH (08:00)
[2017-02-28] MEDS: CITALOPRAM HYDROBROMIDE 20 MG TABLET PO SCH (09:38)
[2017-02-28 09:42] VITALS: BP 105/74
[2017-02-28] MEDS: LANSOPRAZOLE 15 MG TAB.RAP.DR PO SCH (09:44)
--- NOTE | 2017-02-28 09:57 | PDOC DISCHARGE SUMMARY ---
General - Admit/Disc Date/PCP Admission Date/Primary Care Provider: 02/26/17 17:34 Discharge Date: 02/28/17 - Discharge Diagnosis (1) RAJEEV (acute kidney injury) Is this a current diagnosis for this admission?: YesSummary: Likely secondary to Atacand and Spironolactone. Creatinine has returned to normal with IV fluids. (2) Hypotension Is this a current diagnosis for this admission?: YesSummary: Resolved. the patient's a.m. cortisol level was 25 and a stimulation test was not performed. (3) Chest pain Is this a current diagnosis for this admission?: Yes (4) Chronic pain Is this a current diagnosis for this admission?: Yes (5) Hypertension Is this a current diagnosis for this admission?: YesSummary: Patient's Aldactone and Atacand have been stopped because of elevated creatinine. Started on Norvasc. (6) Fibromyalgia Is this a current diagnosis for this admission?: Yes (7) Depression Is this a current diagnosis for this admission?: Yes - Additional Information Resuscitation Status: Full Code Discharge Diet: Cardiac Discharge Activity: Activity As Tolerated Home Medications: Citalopram Hydrobromide [Celexa 40 mg Tablet] 50 mg PO DAILY 02/26/17 Cyclobenzaprine HCl [Flexeril 10 mg Tablet] 10 mg PO DAILYP PRN 02/26/17 Dextroamphetamine/Amphetamine [Adderall Xr 30 mg Capsule] 30 mg PO BID 02/26/17 Levorphanol Tartrate 2 mg PO Q12 02/26/17 Naloxegol Oxalate [Movantik 25 mg Tablet] 25 mg PO DAILY 02/26/17 Norethindrone [Hawa-Be] 0.35 mg PO DAILY 02/26/17 Omeprazole 20 mg PO BID 02/26/17 Sumatriptan [Imitrex 20 mg Nasal [place] Ud] 20 mg NASL ASDIR PRN 02/26/17 Amlodipine Besylate [Norvasc 5 mg Tablet] 5 mg PO DAILY #30 tablet 02/28/17 History of Present Illness History of Present Illness: SINGH CALDERON is a 46 year old female with a history of chronic pain for which she takes narcotics and Naprosyn who presents with a 2 day history of cough and shortness of breath. The patient reports that she 2 days ago with swimming in her pool that she does daily for 2-3 hours and they closed the portal because of excessive chlorine. Since that time she has had a nonproductive cough and has had shortness of breath. She is also felt dizzy when she stands up and has had some left-sided chest pressure. She denies having any fevers or chills. She reports that her cough has been nonproductive. She described the pain as a sharp left-sided pleuritic pain is worse when she takes a deep breath in. She reports that it is not made worse with exertion. She denies having any orthopnea or PND. She had a VQ scan that was low probability for pulmonary embolism. She is noted to have acute renal failure. She has not been known to have elevated creatinine before. She is on Aldactone and candesartan for her blood pressure. The patient reports that she has been taking Naprosyn 2 tablets daily and is not taking any extra anti-inflammatories. The patient in the emergency room was noted to have hypotension with blood pressures in the 60s initially. She has received fluids and her blood pressures have improved. The patient denies any lower extremity edema. She reports that she has been drinking as usual but has had some dark colored urine for the last day. She was under the impression of this was secondary to her multivitamin that she takes. She did have a CAT scan done about 6 months ago and received IV contrast at that time. She denies any fevers or chills or any type of recent upper respiratory illness. She denies any recent antibiotic usage. Denies any new medication started recently. Hospital Course Hospital Course: 6-year-old female who presented with acute renal failure and hypotension. The patient had been on both spironolactone and Atacand. Patient was given IV fluids admitted to the intensive care unit. Patient's blood pressures improved overnight after receiving IV fluids. There was concern given a low cortisol level and she was given a dose of steroids in the past. A Cortrosyn stim test was going to be performed however her morning cortisol level came back at 25 and stimulation test was not performed. Patient's creatinine was elevated and it returned to normal on the day of discharge. Her blood pressures also started to increase again and she was started on Norvasc 5 mg daily. Patient was evaluated by nephrology during this hospitalization. Patient does have problems with chronic pain and she was continued on with her narcotics. She did have an episode of confusion in the care unit but that has resolved. On the day of discharge she is alert and oriented 4 Physical Exam Vital Signs: Temp Pulse Resp BP Pulse Ox 98.8 F 88 18 105/74 98 02/28/17 07:31 02/28/17 07:31 02/28/17 07:31 02/28/17 07:31 02/28/17 07:31 Intake & Output 02/27/17 02/28/17 03/01/17 06:59 06:59 06:59 Intake Total 5298 2442 Output Total 2400 6175 Balance 2898 -2033 Weight 97.3 kg 97.7 kg General appearance: PRESENT: no acute distress Eye exam: PRESENT: conjunctiva pink. ABSENT: scleral icterus Mouth exam: PRESENT: moist, tongue midline Neck exam: ABSENT: carotid bruit, JVD, lymphadenopathy, thyromegaly Respiratory exam: PRESENT: clear to auscultation ba. ABSENT: rales, rhonchi, wheezes Cardiovascular exam: PRESENT: RRR. ABSENT: diastolic murmur, rubs, systolic murmur GI/Abdominal exam: PRESENT: normal bowel sounds, soft. ABSENT: distended, guarding, mass, organolmegaly, rebound, tenderness Extremities exam: ABSENT: calf tenderness, clubbing, pedal edema Neurological exam: PRESENT: alert, awake, oriented to person, oriented to place , oriented to time, oriented to situation, CN II-XII grossly intact. ABSENT: motor sensory deficit Psychiatric exam: PRESENT: appropriate affect, normal mood Skin exam: PRESENT: dry, intact, warm. ABSENT: cyanosis, rash Results Laboratory Results: 02/28/17 05:48 02/28/17 05:48 02/28/17 02/28/17 05:48 05:48 WBC 8.2 RBC 3.58 L Hgb 10.4 L Hct 30.6 L MCV 85 MCH 29.1 MCHC 34.0 RDW 14.1 H Plt Count 252 Seg Neutrophils % 67.4 Lymphocytes % 24.2 Monocytes % 6.7 Eosinophils % 1.2 Basophils % 0.5 Absolute Neutrophils 5.5 Absolute Lymphocytes 2.0 Absolute Monocytes 0.6 Absolute Eosinophils 0.1 Absolute Basophils 0.0 Sodium 138.3 Potassium 4.7 D Chloride 111 H Carbon Dioxide 18 L Anion Gap 9 BUN 14 Creatinine 1.13 Est GFR ( Amer) > 60 Est GFR (Non-Af Amer) 51 L Glucose 89 Calcium 8.7 02/26/17 02/26/17 02/27/17 20:16 20:16 02:12 Creatine Kinase 110 CK-MB (CK-2) 1.43 1.80 Troponin I < 0.012 < 0.012 02/27/17 02/27/17 02/27/17 02:12 08:47 08:47 Creatine Kinase 114 121 CK-MB (CK-2) 1.89 Troponin I < 0.012 Impressions: Renal Ultrasound 02/26/17 00:00 IMPRESSION: NORMAL RENAL AND BLADDER ULTRASOUND. Lung Scan-VQ NM 02/26/17 14:05 IMPRESSION: NORMAL VENTILATION-PERFUSION LUNG SCAN. NEGATIVE FOR PULMONARY EMBOLI. Chest X-Ray 02/26/17 14:06 IMPRESSION: NO ACUTE RADIOGRAPHIC FINDING IN THE CHEST. Qualifiers PATEINT BEING DISCHARGED WITH ANY OF THE FOLLOWING DIAGNOSIS?: No Plan Discharge Plan: Patient is discharged home in stable condition. Will follow up with primary care doctor in 2 weeks. Time Spent: Greater than 30 Minutes
[2017-02-28] MEDS ORDERED: AMLODIPINE BESYLATE 5 MG TABLET PO SCH (10:00)
== END 2017-02-28 10:49 | disposition home or self-care (01) | DRG 683 ==
LOC: ER 13:46 → EH 17:34 → UNDOADMIN 17:42 → ICU 18:40 → EH 18:40 → 3S 02-27 18:42
PROVIDERS: ADMIT Internal Medicine; ATTEND Internal Medicine
DX: N17.9 Acute kidney failure, unspecified (principal); E87.2 Acidosis; E87.5 Hyperkalemia; T46.5X5A Adverse effect of other antihypertensive drugs, initial encounter; T50.0X5A Adverse effect of mineralocorticoids and their antagonists, initial encounter; Y92.89 Other specified places as the place of occurrence of the external cause; I95.9 Hypotension, unspecified; R07.9 Chest pain, unspecified; G89.29 Other chronic pain; I10 Essential (primary) hypertension; M79.7 Fibromyalgia; F32.9 Major depressive disorder, single episode, unspecified; E78.5 Hyperlipidemia, unspecified; M19.90 Unspecified osteoarthritis, unspecified site; Z79.899 Other long term (current) drug therapy; Z88.0 Allergy status to penicillin; Z88.8 Allergy status to other drugs, medicaments and biological substances
CPT/HCPCS: 36415; 71010; 76775; 78582; 80048; 80053; 80307; 81001; 82533; 82550; 82553; 82803; 83605; 83880; 84439; 84443; 84484; 85025; 87040; 87086; 93005; 93010; 94640; 94660; 96360; 96361; 99285; A9540; A9567; J0610; J1265; J1630; J1644; J1720; J1940; J2310; J3490; J7030; J7620; Q9969

== ENCOUNTER → 2020-01-09 | Outpatient (CLI) | payer BC, MEDICARE ==
[2020-01-09 15:46] LABS: ABSOLUTE BASOPHILS # (AUTO) 0.1 10^3/uL (0.0-0.2); ABSOLUTE EOSINOPHILS # (AUTO) 0.3 10^3/uL (0.0-0.6); ABSOLUTE LYMPHOCYTES (AUTO) 2.4 10^3/uL (0.5-4.7); ABSOLUTE MONOCYTES (AUTO) 0.6 10^3/uL (0.1-1.4); ABSOLUTE NEUT (AUTO) 3.5 10^3/uL (1.7-8.2); BASOPHILS % (AUTO) 0.8 % (0-2); HEMATOCRIT 41.6 % (36.0-47.0); HEMOGLOBIN 14.2 g/dL (12.0-15.5); LYMPHOCYTES % (AUTO) 35.6 % (13-45); MEAN CORPUSCULAR HEMOGLOBIN 28.2 pg (27.0-33.4); MEAN CORPUSCULAR HGB CONC 34.1 g/dL (32.0-36.0); MEAN CORPUSCULAR VOLUME 83 fl (80-97); MONOCYTES % (AUTO) 8.6 % (3-13); PLATELET COUNT 297 10^3/uL (150-450); RED BLOOD COUNT 5.03 10^6/uL (3.72-5.28); RED CELL DISTRIBUTION WIDTH 14.6 % (11.5-14.0); TOTAL CELLS COUNTED % (AUTO) 100 %; WHITE BLOOD COUNT 6.8 10^3/uL (4.0-10.5)
[2020-01-09 16:09] LABS: C-REACTIVE PROTEIN 6.8 mg/L (<10.0); URIC ACID 7.7 mg/dL (2.5-7.5)
[2020-01-09 16:44] LABS: ERYTHROCYTE SEDIMENTATION RATE 23 mm/hr (0-30)
== END ==
LOC: OD 14:08
PROVIDERS: ATTEND Orthopaedic Surgery
DX: M25.50 Pain in unspecified joint (principal)
CPT/HCPCS: 36415; 84550; 85025; 85652; 86038; 86140; 86200; 86431